=== PATIENT | female | born 1945 | race Caucasian/White ===

== ENCOUNTER 2018-07-03 21:28 | Observation (INO) | payer OTHER ==
--- NOTE | 2018-07-03 21:35 | EDPHY ---
H & P Time Seen by Provider: 07/03/18 21:31 HPI/ROS: CHIEF COMPLAINT: Altered mental status HISTORY OF PRESENT ILLNESS: 73-year-old female with hypertension presents with altered mental status. The patient was feeling well throughout the day. She had dinner with her and her daughter. After dinner, she sat in a chair while her did dishes. Her tried to wake her up from a nap, but was unable to wake her up. On EMS arrival, a stroke alert was called b/c of AMS. The patient was apparently able to answer limited questions and squeeze their hands equally. Patient currently denies headache or other pain. REVIEW OF SYSTEMS: Unable to obtain Source: EMS - Medical/Surgical History Hx Asthma: No Hx Chronic Respiratory Disease: No Hx Diabetes: No Hx Cardiac Disease: No Hx Renal Disease: No Hx Cirrhosis: No Hx Alcoholism: No Hx HIV/AIDS: No Hx Splenectomy or Spleen Trauma: No Other PMH: pmh- unmedicated htn. psh-appy - Social History Smoking Status: Never smoked Alcohol Use: Sober Drug Use: None Additional Social History: - Physical Exam Exam: General Appearance: Eyes closed, tells me her name, wiggles her toes and falls of the commands Eyes: Pupils equal and round, 3 mm, no conjunctival pallor or injection ENT, Mouth: Mucous membranes moist Neck: Normal inspection Respiratory: Lungs are clear to auscultation Cardiovascular: Regular rate and rhythm Gastrointestinal: Abdomen is soft and nontender Neurological: Eyes closed, gold plater strength equal, moves all toes equally Skin: Warm and dry Extremities: Normal inspection Psychiatric: Unable to determine Constitutional: Initial Vital Signs Heart Rate 78 07/03/18 21:38 Respiratory Rate 14 07/03/18 21:38 Blood Pressure 107/72 07/03/18 21:38 O2 Sat (%) 97 07/03/18 21:38 O2 Delivery Mode Nasal Cannula O2 (L/minute) 2 Allergies/Adverse Reactions: No Known Allergies Allergy (Verified 07/04/18 08:13) Home Medications: Medication Instructions Recorded Benzocaine/Menthol 15/4 [Cepacol 1 ea PO PRN PRN lozenge 07/04/18 Lozenge] Calcium Carbonate [Oyster Shell 1,500 mg PO BID 07/04/18 Calcium 500 mg (*)] Herbals/Supplements -Info Only 1 ea PO DAILY 07/04/18 Lisinopril [Zestril 20 mg (*)] 20 mg PO DAILY tab 07/04/18 Multivitamins [Multivitamin (*)] 1 each PO DAILY 07/04/18 Rudy-3 Fatty Acids [Fish Oil 1000 1,000 mg PO DAILY 07/04/18 mg (*)] Medical Decision Making - Diagnostics EKG Interpretation: EKG interpreted by me reveals normal sinus rhythm, rate 86, abnormal R-wave progression, probable LVH. Interpretation: Abnormal EKG Imaging Results: Head CT 07/03/18 21:31 Impression: 1. No acute intracranial findings. 2. Diffuse cerebral atrophy with periventricular and subcortical low attenuation consistent with chronic microvascular ischemic gliosis. 3. Additional findings as above. Findings discussed with JUDY TURCIOS 07/03/2018 at 2137. Imaging: Discussed imaging studies w/ life trainer Radiologist ED Course/Re-evaluation: Patient presents as a stroke alert. On my initial exam, her neurologic exam is nonfocal and she is able to answer a few questions. CT scan the brain is unremarkable, read by Dr. Duncan Mehta. Telemedicine was consulted and Dr. Good interviewed the patient. No evidence of an acute CVA and tPA is not indicated. Unclear etiology of sx. 10:20 p.m.-patient remains quite drowsy, though somewhat more interactive and is able to answer more questions. Continues to deny any complaints. Will admit for further evaluation. The hospitalist service was consulted for admission. 11pm: pt less drowsy, answering more questions, TIJERINA equally and following commands. Overall improved, but not back to baseline. Differential Diagnosis: Altered mental status including but not limited to hypoglycemia, infectious process, electrolyte abnormality, head injury, CVA, and intoxicants. - Data Points Laboratory Results: Laboratory Results 07/03/18 21:48 07/03/18 21:48 Medications Given: Discontinued Medications Sodium Chloride (Ns) 1,000 mls @ 0 mls/hr IV ONCE ONE; Wide Open PRN Reason: Protocol Stop: 07/03/18 22:26 Last Admin: 07/03/18 22:26 Dose: 1,000 mls Lisinopril (Zestril) 20 mg PO DAILY MARCIA Stop: 12/31/18 14:44 Last Admin: 07/04/18 14:58 Dose: 20 mg Pantoprazole Sodium (Protonix) 40 mg PO ONCE ONE Stop: 07/04/18 14:36 Last Admin: 07/04/18 14:58 Dose: 40 mg Point of Care Test Results: Chemistry 07/03/18 07/03/18 21:37 21:36 POC Sodium 141 mEq/L mEq/L (135-145) POC Potassium 3.3 mEq/L mEq/L (3.3-5.0) POC Chloride 102 mEq/L mEq/L (97-110) POC Total CO2 23 mEq/L mEq/L (22-31) POC BUN 15 mg/dL mg/dL (7-23) POC Creatinine 1.1 mg/dL H mg/dL (0.6-1.0) POC Glucose 145 mg/dL H mg/dL (70-100) POC Troponin I 0.02 ng/mL ng/mL (0.00-0.08) ISTAT H&H 07/03/18 21:37 POC Hgb 15.3 gm/dL gm/dL (12.6-16.3) POC Hct 45 % % (38-47) Departure - Departure Disposition: [facility] Inpatient Acute Clinical Impression: Encephalopathy acute Condition: Good
[2018-07-03 21:52] LABS: PLATELET COUNT 237 10^3/uL (150-400)
[2018-07-03] MEDS ORDERED: NS 1,000 ML IV ONE (22:25)
[2018-07-03] MEDS ORDERED: ONDANSETRON DISINTEGRATING 4 MG TAB PO PRN (22:32)
[2018-07-03] MEDS ORDERED: ONDANSETRON 4 MG/2 ML VIAL IVP PRN (22:32)
[2018-07-03] MEDS ORDERED: ACETAMINOPHEN 325 MG TAB PO PRN (22:32)
--- NOTE | 2018-07-03 22:38 | CPEKG ---
Test Reason : OPEN Blood Pressure : / mmHG Vent. Rate : 086 BPM Atrial Rate : 086 BPM P-R Int : 178 ms QRS Dur : 096 ms QT Int : 393 ms P-R-T Axes : 045 001 034 degrees QTc Int : 470 ms Sinus rhythm Abnormal R-wave progression, early transition Probable left ventricular hypertrophy Confirmed by Fabiana Mercado ([id number]) on 07/03/2018 10:38:15 PM Referred By: Fabiana Mercado Confirmed By:Fabiana Mercado
--- NOTE | 2018-07-03 23:01 | PDGENHP ---
History and Physical - Chief Complaint Altered mental status - History of Present Illness 73 yo F w/ hx of HTN presents with altered mental status. The patient was behaving fairly normally today until after dinner. She sat down on the cough for a while and then became difficult to arouse. Her tells me she was minimally responsive for at least 30 minutes. She is now more interactive and able to tell me she does not recall the event. EMS was called and she was brought to the ED for evaluation. In the ED her evaluation has been mostly unremarkable aside from low/normal BP and mild leukocytosis. A CT of her head was unremarkable. She was initially brought in as a stroke alert. However, her neurologic exam is non-focal. She was evaluated to neurology via telemedicine, who did not feel her presentation was consistent with a stroke. During my evaluation I can see a clear R eye conjunctivitis. In addition, her tells me they were caring for their granddaughter 2 days ago who has been sick with a viral illness. The patient also states she has mild irritation in her throat. Case discussed with ED physician Dr. Turcios; records reviewed and summarized above. History Information - Allergies/Home Medication List Allergies/Adverse Reactions: No Known Allergies Allergy (Unverified 04/02/14 12:19) Home Medications: Diltiazem 07/03/18 [Last Taken Unknown] Lisinopril 07/03/18 [Last Taken Unknown] I have personally reviewed and updated: family history, medical history - Past Medical History arthritis, hypertension - Surgical History Additional surgical history: R shoulder surgery. R hip surgery - Family History Positive for: hypertension - Social History Smoking Status: Never smoked Alcohol Use: Sober Drug Use: None Review of Systems Review of Systems: ROS: 10pt was reviewed & negative except for what was stated in HPI & below Physical Exam Physical Exam: Temp Pulse Resp BP Pulse Ox 36.7 C 93 16 94/68 L 96 07/03/18 22:00 07/03/18 22:15 07/03/18 22:15 07/03/18 22:15 07/03/18 22:15 Constitutional: appears nourished, other (Drowsy) Eyes: PERRL, EOMI, scleral injection (R>L) Ears, Nose, Mouth, Throat: moist mucous membranes, no oral mucosal ulcers Cardiovascular: regular rate and rhythym, systolic murmur Respiratory: no respiratory distress, clear to auscultation Gastrointestinal: normoactive bowel sounds, soft, non-tender abdomen Skin: warm, normal color Musculoskeletal: full muscle strength, no muscle tenderness Neurologic: sensation intact bilaterally, CN II-XII Intact, other (A&Ox2, drowsy and slow to respond to questions), No weakness, No numbness, No facial droop Psychiatric: encephalopathic, poor memory Lab Data & Imaging Review 07/03/18 21:48 07/03/18 21:48 WBC 11.73 10^3/uL (3.80-9.50) H 07/03/18 21:48 RBC 4.88 10^6/uL (4.18-5.33) 07/03/18 21:48 Hgb 15.2 g/dL (12.6-16.3) 07/03/18 21:48 POC Hgb 15.3 gm/dL (12.6-16.3) 07/03/18 21:37 Hct 44.9 % (38.0-47.0) 07/03/18 21:48 POC Hct 45 % (38-47) 07/03/18 21:37 MCV 92.0 fL (81.5-99.8) 07/03/18 21:48 MCH 31.1 pg (27.9-34.1) 07/03/18 21:48 MCHC 33.9 g/dL (32.4-36.7) 07/03/18 21:48 RDW 13.2 % (11.5-15.2) 07/03/18 21:48 Plt Count 237 10^3/uL (150-400) 07/03/18 21:48 MPV 9.6 fL (8.7-11.7) 07/03/18 21:48 POC Sodium 141 mEq/L (135-145) 07/03/18 21:37 Sodium 138 mEq/L (135-145) 07/03/18 21:48 POC Potassium 3.3 mEq/L (3.3-5.0) 07/03/18 21:37 Potassium 3.6 mEq/L (3.5-5.2) 07/03/18 21:48 POC Chloride 102 mEq/L (97-110) 07/03/18 21:37 Chloride 105 mEq/L (97-110) 07/03/18 21:48 Carbon Dioxide 22 mEq/l (22-31) 07/03/18 21:48 POC Total CO2 23 mEq/L (22-31) 07/03/18 21:37 Anion Gap 11 mEq/L (6-14) 07/03/18 21:48 POC BUN 15 mg/dL (7-23) 07/03/18 21:37 BUN 17 mg/dL (7-23) 07/03/18 21:48 Creatinine 1.1 mg/dL (0.6-1.0) H 07/03/18 21:48 POC Creatinine 1.1 mg/dL (0.6-1.0) H 07/03/18 21:37 Estimated GFR 48 07/03/18 21:48 Glucose 135 mg/dL (70-100) H 07/03/18 21:48 POC Glucose 145 mg/dL (70-100) H 07/03/18 21:37 Calcium 10.0 mg/dL (8.5-10.4) 07/03/18 21:48 POC Troponin I 0.02 ng/mL (0.00-0.08) 07/03/18 21:36 Ethyl Alcohol 19 mg/dL (0-10) H 07/03/18 21:55 Imaging Review: Imaging Impressions Head CT 07/03/18 21:31 Impression: 1. No acute intracranial findings. 2. Diffuse cerebral atrophy with periventricular and subcortical low attenuation consistent with chronic microvascular ischemic gliosis. 3. Additional findings as above. Findings discussed with JUDY TURCIOS 07/03/2018 at 2137. Chest X-Ray 07/03/18 22:28 Impression: 1. No acute findings in the chest. 2. Additional findings as above. Assessment & Plan Assessment: 73 yo F w/ hx of HTN presents with acute encephalopathy. Plan: 1. Acute metabolic encephalopathy - Presents with several hours of drowsiness and impaired memory. Her neurologic exam is non-focal and CTH (personally reviewed/interpreted) without acute abnormalities. R eye conjunctivitis, sore throat, and recent sick contact are suspicious for viral infection, which may be causative in combination with dehydration. She was evaluated by [facility] in the ED who did not feel her presentation was concerning for stroke. - Admit for observation - 1 L IVF - Check respiratory PCR - Will also obtain UA to complete infectious work-up - If not improved overnight, may benefit from MRI tomorrow - PT/OT evaluations 2. LOYDA - Mild, serum creatinine 1.1 on admission increased from a normal baseline. This is likely a marker of dehydration. - 1 L IVF - Repeat BMP in the morning 3. Hypertension - Hold home medication (lisinopril) in setting of altered mental status and low/normal BP. - Restart home meds as indicated Diet - NPO pending RN swallow screen Code - Full Ppx - SCDs Dispo - Admit under observation status
[2018-07-04] MEDS ORDERED: CEPACOL LOZENGE PO PRN (01:01)
[2018-07-04 05:40] LABS: PLATELET COUNT 196 10^3/uL (150-400)
[2018-07-04 07:22] VITALS: BP 146/92
--- NOTE | 2018-07-04 12:18 | HOSPPROG ---
Hospitalist Progress Note Assessment/Plan: Wanda is a 73 y/o who presented w acute encephalopathy. *acute Metabolic encephalopathy -CT of head shows nothing acute -urine tox screen + for Cannibis(uses this for pain) and alcohol (small glass of wine last night) -had low blood pressure when EMT arrived per her -she is alert and oriented, no neuro deficits *recent viral infection (sore throat, r eye conjunctivitis, and recent sick contacts) -respiratory PCR is negative -has ongoing coughing, will get a PA and lateral chest xray *LOYDA -resolved *hypertension -will resume lisinopril but lower dose *plan: will get a chest x ray to r/o any infectious etiology, likely dc home, updated Dr Powell of patient's admission Subjective: Wanda said she feels fine, wants to go home Objective: Vital Signs Temp Pulse Resp BP Pulse Ox 36.8 C 74 18 146/92 H 93 07/04/18 07:19 07/04/18 07:19 07/04/18 07:19 07/04/18 07:19 07/04/18 07:19 Microbiology 07/03/18 23:50 Respiratory Panel (PCR) - Final Nasal, Sinus - Swab No Organism Detected By Pcr Laboratory Results 07/04/18 04:40 07/04/18 04:40 07/03/18 07/04/18 07/05/18 05:59 05:59 05:59 Intake Total 700 Output Total 950 Balance -250 - Physical Exam Constitutional: no apparent distress Eyes: PERRL Ears, Nose, Mouth, Throat: hearing normal Cardiovascular: regular rate and rhythym Respiratory: no respiratory distress, rhonchi (bases) Skin: warm Musculoskeletal: full muscle strength Neurologic: AAOx3, CN II-XII Intact, No pronator drift, No facial droop Psychiatric: interacting appropriately ICD10 Worksheet Patient Problems: Problems Problem Status Onset Acute metabolic encephalopathy Acute - ICD10 Problem Qualifiers (1) Acute metabolic encephalopathy
[2018-07-04] MEDS ORDERED: PANTOPRAZOLE SODIUM 40 MG TAB PO ONE (14:35)
[2018-07-04] MEDS ORDERED: LISINOPRIL 20 MG TAB PO SCH (14:45)
--- NOTE | 2018-07-04 18:03 | GDS ---
[f rep st] DISCHARGE SUMMARY DISCHARGE DIAGNOSES: 1. Acute metabolic encephalopathy. 2. Recent viral infection. 3. Acute kidney injury. 4. Hypertension. Briefly, the patient is a very nice 73-year-old female with a history of hypertension and severe osteoporosis. The patient was in her usual state of mind after dinner. She sat down on the couch for a while and became difficult to arouse. Her said that she was minimally responsive for at least 30 minutes, and he called EMS. He said her blood pressure was extremely low. She had a CT of her head that was unremarkable. She was evaluated by [facility] who did not believe her presentation was consistent with a stroke. Today, she is feeling markedly better. She is eating and drinking well. Per her , she is back to her baseline. I suspect her acute metabolic encephalopathy was secondary from a small amount of alcohol use as well as some CBD oil ,she uses for chronic pain due to her osteoporosis, as well as being dehydrated. She will be discharged home. She has an appointment to follow up with Dr. Powell tomorrow morning. HOSPITAL COURSE: 1. Acute metabolic encephalopathy, back to her baseline. She is feeling markedly better. 2. Pyuria. She has no signs or symptoms of a urinary tract infection. Recommend if she does, to further follow up with her PCP. 3. Acute kidney injury, resolved. 4. Hypertension. Her blood pressure was low this morning, now it is higher this afternoon. Resumed her lisinopril at a lower dose to see how she tolerates this. 5. Recent viral infection. She had a respiratory PCR that is negative. She has had ongoing coughing during my evaluation. A chest x-ray was performed. She has bronchitis. Recommending Mucinex. DISCHARGE CONDITION: Stable. Blood pressure is 146/92, heart rate is 74, respiratory rate of 18, O2 sats on room air 92%, temperature is 36.8 Celsius. MEDICATIONS AT DISCHARGE: Please see the EMR. DISCHARGE INSTRUCTIONS: 1. To stay well hydrated. 2. To take lisinopril 20 mg daily. This is half the dose she usually takes. To check her blood pressure before, an hour after after she takes her blood pressure medications. To take these readings with her when she sees her primary care provider. 3. Recommending she take some Mucinex to help with her bronchitis. /[id number]/MODL MTDD
[2018-07-04] MEDS ORDERED: CALCIUM CARBONATE 500 MG TAB PO SCH (21:00)
== END 2018-07-04 16:39 | disposition home or self-care (01) ==
LOC: EDUNIT# → F3N 23:51
PROVIDERS: ADMIT Student in an Organized Health Care Education/Training Program; ATTEND Family Medicine
DX: G93.41 Metabolic encephalopathy (principal); N17.9 Acute kidney failure, unspecified; E86.0 Dehydration; I10 Essential (primary) hypertension; M81.0 Age-related osteoporosis without current pathological fracture; J40 Bronchitis, not specified as acute or chronic
CPT/HCPCS: 70450; 71045; 71046; 93005; 96360; 99285; G0378; 80305; 82435-PO; 82565-PO; 82947-PO; 84132-PO; 84295-PO; 84484-ER; 84520-PO; 85014-ER; G0480

== ENCOUNTER → 2018-07-12 | Outpatient (CLI) | payer OTHER ==
[~2018-07-12] MED LIST: GADOBUTROL 10 ML VIAL IVP ONE
== END ==
LOC: FIMAGING 06:11
PROVIDERS: ATTEND Internal Medicine
DX: G93.40 Encephalopathy, unspecified (principal); R26.9 Unspecified abnormalities of gait and mobility; R42 Dizziness and giddiness
CPT/HCPCS: 70553; A9585

== ENCOUNTER → 2018-08-28 | Outpatient (CLI) | payer OTHER ==
--- NOTE | 2018-08-28 14:53 | CPEEG ---
[f rep st] ELECTROENCEPHALOGRAM DATE OF STUDY: 08/28/2018 DATE OF INTERPRETATION: 08/28/2018 INTERPRETATION: This 4-hour video EEG recording is normal. There were no potentially epileptogenic abnormalities present in the awake or sleep recordings. During the video EEG monitoring session, the patient did not have any clinical events. REPORT: This 4-hour video EEG contains 10 Hz alpha activity over the posterior head regions. The ba ckground activity was normal and symmetric. There was no abnormal activation at rest, during photic stimulation or hyperventilation. The patient became drowsy and fell into sustained sleep during the study. There was no abnormal activation during drowsiness, sleep, or during times of arousal. The jules delatorre does not have any clinical events during the video EEG monitoring session. /[id number]/MODL
== END ==
LOC: FCPNEURO 08:10
PROVIDERS: ATTEND Psychiatry & Neurology Neurology
DX: R41.3 Other amnesia (principal); R26.9 Unspecified abnormalities of gait and mobility; R90.82 White matter disease, unspecified

== ENCOUNTER → 2018-10-24 | Outpatient (CLI) | payer OTHER | LOC: FIMAGING 13:15 ==